=== PATIENT | male | born 1955 | race Caucasian/White ===

== ENCOUNTER 2017-02-26 09:58 | Emergency (ER) | payer SELFPAY ==
[~2017-02-26] VITALS: Ht 175.3 cm; Wt 103.0 kg
[~2017-02-26 09:58] MED LIST: MELO15TA2 PO; TYLE3 PO; Z.0.NO CURRENT MEDS
[2017-02-26 09:59] VITALS: BP 139/89; PULSE 79; RESP 18; TEMP 98; O2SAT 98
--- NOTE | 2017-02-26 10:26 | PD ---
HPI Chief Complaint: Musculoskeletal Complaint Time Seen by Provider: 10:17 Travel History International Travel<30 days: No Contact w/Intl Traveler<30days: No Traveled to known affect area: No History of Present Illness HPI 61-year-old male complains of left knee pain. Patient states that he probably struck his left knee against a lawnmower 4 days ago. Patient states that he had persistent sharp pain localized to left patellar area. Patient denies any pain radiation. Patient states the pain is worse with movement of the left knee joint. On a scale of 1-10 the pain is an 8. PFSH Past Medical History Asthma: Yes Social History Alcohol Use: Yes (RARELY) Tobacco Use: No Substance Use: No Allergies-Medications (Allergen,Severity, Reaction): Coded Allergies: No Known Allergies (Verified , 02/26/17) Reported Meds & Prescriptions Reported Meds & Active Scripts Active No Active Prescriptions or Reported Medications Review of Systems General / Constitutional: No: Fever Eyes: No: Visual changes HENT: No: Headaches Cardiovascular: No: Chest Pain or Discomfort Respiratory: No: Shortness of Breath Gastrointestinal: No: Abdominal Pain Genitourinary: No: Dysuria Musculoskeletal: Positive: Pain Skin: No Rash Neurologic: No: Weakness Psychiatric: No: Depression Endocrine: No: Polydipsia Hematologic/Lymphatic: No: Easy Bruising Physical Exam Narrative GENERAL: Well-nourished, well-developed patient. SKIN: Focused skin assessment warm/dry. HEAD: Normocephalic. EYES: No scleral icterus. No injection or drainage. NECK: Supple, trachea midline. No JVD or lymphadenopathy. CARDIOVASCULAR: Regular rate and rhythm without murmurs, gallops, or rubs. RESPIRATORY: Breath sounds equal bilaterally. No accessory muscle use. GASTROINTESTINAL: Abdomen soft, non-tender, nondistended. MUSCULOSKELETAL: No cyanosis, or edema. BACK: Nontender without obvious deformity. No CVA tenderness. Patient has moderate tenderness on palpation of the patellar area of the left knee. Limited range of motion the left knee secondary to pain. Mild effusion noted. Knee joints stable. Data Data Last Documented VS Vital Signs Date Time Temp Pulse Resp B/P Pulse Ox O2 Delivery O2 Flow Rate FiO2 02/26/17 09:59 98.0 79 18 139/89 98 Orders Knee, Ltd (1 Or 2vws) (7/2/17 10:20) [facility] Medical Decision Making Medical Screen Exam Complete: Yes Emergency Medical Condition: Yes Interpretation(s) Last Impressions Knee X-Ray 02/26/17 1020 Signed Impressions: Service Date/Time: Sunday, February 26, 2017 11:06 - CONCLUSION: Osteoarthritis and large knee joint effusion. Vítcor Guerrero MD Differential Diagnosis Differential diagnosis including contusion, sprain, fracture, dislocation. Narrative Course 61-year-old male with left knee injury. Diagnosis Primary Impression: Contusion of left knee Qualified Code: S80.02XA - Contusion of left knee, initial encounter Patient Instructions: General Instructions Additional Instructions: Celso wrap to left knee. Take medication as directed for knee pain. Follow with orthopedist. Med/Other Pt SpecificInfo: Prescription(s) given Scripts Tramadol (Ultram)50 Mg Tab50 Mg PO Q6H PRN (PAIN) #30 TAB Ref 0 Prov:Juan Antonio Jaffe MD 02/26/17 Meloxicam (Mobic)15 Mg Tab15 Mg PO DAILY #30 TAB Prov:Juan Antonio Jaffe MD 02/26/17 Disposition: 01 DISCHARGE HOME Condition: Stable Juan Antonio Jaffe MD Feb 26, 2017 10:26
--- NOTE | 2017-02-26 11:21 | RADRPT ---
EXAM DATE/TIME: 02/26/2017 11:06 [facility] COMPARISON: No previous studies available for comparison. INDICATIONS : Left knee pain after mowing yard MEDICAL HISTORY : None. SURGICAL HISTORY : None. ENCOUNTER: Initial ACUITY: 4 - 6 days PAIN SCORE: 5/10 LOCATION: Left knee FINDINGS: There is osteoarthritis of moderate severity involving medial tibiofemoral compartment with joint spa ce narrowing, mild sclerosis and marginal osteophyte formation. There is spurring of the tibial spine s. There is a large knee joint effusion. No obvious fracture fragments. CONCLUSION: Osteoarthritis and large knee joint effusion. Víctor Guerrero MD on February 26, 2017 at 11:18 Board Certified Radiologist. This report was verified electronically.
[2017-02-26] MEDS ORDERED: MOBI15TA PO (11:31)
[2017-02-26] MEDS ORDERED: ULTR50TA5 PO (11:31)
== END 2017-02-26 11:43 | disposition home or self-care (01) ==
LOC: PHEFT 09:58
DX: S80.02XA Contusion of left knee, initial encounter (principal); Z87.09 Personal history of other diseases of the respiratory system; W22.8XXA Striking against or struck by other objects, initial encounter
CPT/HCPCS: 73560; 99284